=== PATIENT | female | born 1990 | race Caucasian/White ===

== ENCOUNTER 2019-11-03 14:00 | Outpatient (CLI) | payer MEDICAID, SELFPAY ==
--- NOTE | 2019-11-03 | US_ITS ---
WS: [id number] THYROID ULTRASOUND HISTORY: THYROMEGALY COMPARISON: 09/10/2011. 01/29/2018 Right lobe: 5.1 cm x 1.3 cm x 1.5 cm. Volume: 5.2 cm3. Normal size and echotexture. No significant are dominant nodules are present. Left lobe: 5.1 cm x 1.6 cm x 1.6 cm. Volume: 6.6 cm3. Normal size gland. Hypoechoic nodule measuring 2.8 mm in the LEFT thyroid. Probably representing fer oid cyst. Isthmus: 0.2 cm. US/US thyroid 92224 IMPRESSION: Negative thyroid ultrasound. No concerning or suspicious masses.
== END 2019-11-03 14:01 | disposition home or self-care (01) ==
LOC: RADOUTREAD 15:57
PROVIDERS: Family Provider Family Medicine; Visit Provider Family Medicine
DX: Z76.89 Persons encountering health services in other specified circumstances (principal)

== ENCOUNTER 2019-12-06 12:20 | Outpatient (CLI) | payer MEDICAID, SELFPAY ==
--- NOTE | 2019-12-06 | US_ITS ---
WS: [id number] OB ultrasound, 12/08/2019 Clinical Data: MULTIGRAVIDA IN 2ND TRIMESTER Comparison: None. Findings: There is a single intrauterine in the breech presentation. The placenta is Anterior and gra de 0. There is a normal amount of amnionic fluid. The heart rate is 153 beats per minute. The c ervix is 4.13 cm and closed. Measurements of growth and development: BPD: 4.7 cm HC: 17.6 cm AC: 15.4 cm FL: 3.3 cm The estimated weight is 352 or approximately 12 ounces The estimated gestational age is 20w2d with an JOSÉ LUIS of approximately 04/22/2020. anatomy show a normal stomach, kidneys, bladder, cord insertion, three-vessel cord, entire spin e, four-chamber heart, lateral cerebral ventricles, cerebellum and cisterna magna. US/US OB >= 14 weeks fetus [id number] Impression: 1. Single intrauterine in breech presentation. 2. Estimated gestational age 20w2d with an JOSÉ LUIS of 04/22/2020. 3. heart rate 153 beats per minute.
== END 2019-12-06 12:21 | disposition home or self-care (01) ==
LOC: RADOUTREAD 12-08 14:36
PROVIDERS: Family Provider Family Medicine; Visit Provider Family Medicine
DX: Z76.89 Persons encountering health services in other specified circumstances (principal)

== ENCOUNTER 2020-04-19 20:51 | Inpatient (IN) | payer MEDICAID, SELFPAY ==
[2020-04-19 20:30] VITALS: BP 134/64; PULSE 81; RESP 16; TEMP 36.8
[2020-04-19 20:50] VITALS: BMI 28.3
[2020-04-19 22:02] LABS: Basophils % 0.3 %; Eosinophils # 0.1 10^3/uL (0.0-0.8); Eosinophils % 0.5 %; Hematocrit 32.4 % (37.0-47.0); Hemoglobin 9.8 g/dL (11.5-15.3); Lymphocytes # 2.1 10^3/uL (0.8-4.8); Lymphocytes % 20.5 %; Mean Corpuscular HGB Conc 30.2 g/dL (30.0-36.0); Mean Corpuscular Hemoglobin 25.1 pg (28.0-34.0); Mean Corpuscular Volume 82.9 fL (81-99); Mean Platelet Volume 9.7 fL (7.4-10.4); Monocytes # 0.7 10^3/uL (0.2-0.9); Monocytes % 7.1 %; Neutrophils # 7.11 10^3/uL (1.8-7.7); Neutrophils % 70.9 %; Nucleated Red Blood Cells % 0.2 %; Platelet Count 323 10^3/cmm (130-400); Red Blood Count 3.91 10^6/uL (4.1-5.3); Red Cell Distribution Width 14.3 % (12.1-15.1)
[2020-04-19 23:18] VITALS: BP 149/55; PULSE 81
--- NOTE | 2020-04-19 23:27 | PM.DELIVERY ---
Delivery Note: Date of delivery: April 19, 2020 Pre-Delivery Course: The patient is a otherwise healthy 29-year-old 4 para 3-0-0-3 female at 39 weeks estimated gestational age who presented to the hospital in active labor. She had spontaneous rupture of membranes at around 12:00 today. She then began having contractions and came into the hospital for further evaluation. was otherwise unremarkable. She was GBS negative. Her glucose screen was negative. She is Rh+. There were no other abnormalities noted in her labs. The patient was very clear that she wanted to minimize any interventions during her . She is willing to have a Hep-Lock but did not want IV fluids. She also does not want to have Pitocin after delivery. I discussed these things with her in the office and talked her about the risks associated with not doing those things, and she wishes to proceed without the standard care regardless. Delivery: DELIVERY: The patient progressed to complete without difficulty. She delivered a male with a weight of 9 pounds 5 ounces with Apgars of 8, 9. The baby was delivered from the MATTHEW position. The mother was on her hands and knees when she delivered the baby. The baby was placed on the bed and typically turn the mother around and put the baby on the mother's chest. The mother wished just to delay the clamping of the umbilical cord until after the baby had been born for 10 minutes. There was no nuchal cord. There was no meconium. The placenta and 3 vessel cord were delivered intact shortly thereafter. The perineum and vaginal vault were carefully examined. She was noted to have a second-degree posterior midline tear that was repaired with 3-0 Vicryl after anesthetizing the area with lidocaine 2%. Both the mother and the baby were in stable condition. Post-Delivery Status: Good. The mother did begin to have some bleeding and some clots passed about 20 minutes after delivery of the . I talked her about the importance of preemptively addressing her bleeding, especially because her hemoglobin was marginal. She agreed to receive a liter of IV fluids and a half of the usual dose Pitocin we give after delivery of the baby. A&P Assessment and plan (1) 39 weeks gestation of : We will watch her for bleeding closely. Hopefully she has finished any major bleeding and will just have regular bleeding moving forward. Hopefully she will be ready be discharged in 24 hours. Status: Acute (2) Spontaneous vaginal delivery: Status: Acute Coding Level of Care Code Acute [place] Studies Professor for Chg Fwd Diagnoses 39 weeks gestation of [id number].39 Spontaneous vaginal delivery O80
[2020-04-19 23:28] VITALS: BP 0/0
[2020-04-19 23:29] VITALS: BP 134/60; PULSE 78
[2020-04-19 23:34] VITALS: BP 118/63; PULSE 80
[2020-04-19] MEDS: lactated ringers 1,000 ML 999 ML IV (23:35)
[2020-04-19 23:48] VITALS: BP 133/69; PULSE 79
[2020-04-20] VITALS (15 sets, daily range): BP systolic 107–125; BP diastolic 57–84; PULSE 59–94; RESP 15–18; TEMP 36.5–36.9; O2SAT 97–99
[2020-04-20] MEDS: oxytocin 30 UNIT/500 ML BAG 600 UNIT IV (01:54)
--- NOTE | 2020-04-20 07:27 | P.PN_ITS ---
GLASS MELT OPERATOR Subjective Subjective: Interval history: Patient is doing well with no problems. She has had some mild lochia with no significant cramps. She is ambulating well in the thus far is tolerating a regular diet this morning. Labor: Station: +2 Amniotic Membrane Status: Ruptured Monitor Mode: Palpation Contraction Pattern: Regular Vitals/I&O/Wt Last Vital Signs Temp 97.7 F 04/20/20 02:00 Pulse 73 04/20/20 03:00 Resp 16 04/20/20 03:00 BP 123/84 04/20/20 03:00 Pulse Ox 97 04/20/20 00:45 04/19/20 04/20/20 04/20/20 22:59 06:59 14:59 Intake Total 1299.0 / 1299.0 Output Total 2200 / 2200 Balance -901.0 / -901.0 Weight last 48 hrs Weight 77.111 kg Weight 77.111 kg Physical Exam Const: COMMON NORMALS: no acute distress, average body habitus and alert GENERAL APPEARANCE: cooperative Resp: COMMON NORMALS: normal respiratory effort, No retractions, No use of accessory muscles and clear to auscultation bilaterally AUSCULTATION: clear to auscultation bilaterally Cardio: COMMON NORMALS: regular rate, regular rhythm and No murmurs present (Cardio) RATE: regular rate RHYTHM: regular rhythm GI: COMMON NORMALS: Normal to inspection, nondistended, normoactive bowel sounds present, Soft to palpation (Fundus is firm.) and non-tender PALPATION: Yes Soft to palpation (Fundus is firm.) Extremity: COMMON NORMALS: normal to inspection, full ROM and no pedal edema Neuro: SENSORIUM/ORIENTATION: Yes alert Psych: COMMON NORMALS: mental status grossly normal, Normal thought process present, cooperative and normal affect THOUGHT PROCESS: Normal thought process present Data : 04/19/20 21:45 A&P Assessment and plan (1) Spontaneous vaginal delivery: Patient is doing well at this time. We will see how she does throughout the day and can possibly discharge home this evening. Plan probable discharge in the morning. Status: Acute Attestations Medical Necessity Statement*: Patient delivered late last night by spontaneous vaginal delivery. Plan probable discharge in the morning. There is a possibility she will be stable be discharged late tonight if she desires to go home tonight after 24 hours. Time Spent in Patient Care: less than 15 minutes Coding Level of Care Code Acute Adult Family Home Program Manager for Chg Fwd Diagnoses Spontaneous vaginal delivery O80
[2020-04-20] MEDS: lanolin oint 7 gm 1 APPLIC TOPICAL (09:21)
[2020-04-20] MEDS: prenatal vitamin Capsule 1 CAP PO (09:22)
[2020-04-20] MEDS: docusate sodium 100 mg Capsule PO ×2 (09:22→17:46)
[2020-04-20 13:05] LABS: Hematocrit 30.1 % (37.0-47.0); Hemoglobin 9.3 g/dL (11.5-15.3); Mean Corpuscular HGB Conc 30.9 g/dL (30.0-36.0); Mean Corpuscular Hemoglobin 25.3 pg (28.0-34.0); Mean Platelet Volume 9.7 fL (7.4-10.4); Platelet Count 346 10^3/cmm (130-400); Red Blood Count 3.67 10^6/uL (4.1-5.3); Red Cell Distribution Width 14.3 % (12.1-15.1); White Blood Count 13.1 10^3/uL (4.0-10.0)
[2020-04-20] MEDS: simethicone 80 mg Chew 120 MG PO (16:55)
--- NOTE | 2020-05-01 07:15 | PM.OBGYDC ---
Discharge Providers CONTROL SYSTEMS DEVELOPER Date of Admission: 04/19/20 20:51 Date of Discharge: 05/01/20 Attending Provider at Admission: Steve Jarrett MD Attending Provider at Discharge: Steve Jarrett MD Diagnoses at Discharge Discharge Diagnosis (1) Spontaneous vaginal delivery: Status: Acute Problem details: Patient did very well post delivery. She was ambulating well and tolerating regular diet. The was breast-feeding well and she desired to go home late the evening after delivery. Reason for Visit Reason for Visit: Contractions and possible ROM Hospital Course Hospital Course: As described above, the patient is done extremely well. She is very stable for discharge. She has had mild lochia and no significant bleeding. Information Peripartum Data: Infant Delivery Method: Vaginal Physical Exam Const: COMMON NORMALS: no acute distress and no limitations GENERAL APPEARANCE: cooperative and comfortable Resp: COMMON NORMALS: normal respiratory effort, No retractions, No use of accessory muscles and clear to auscultation bilaterally AUSCULTATION: clear to auscultation bilaterally Cardio: COMMON NORMALS: regular rate, regular rhythm and No murmurs present (Cardio) RATE: regular rate RHYTHM: regular rhythm GI: COMMON NORMALS: Normal to inspection, nondistended, normoactive bowel sounds present, Soft to palpation and non-tender PALPATION: Yes Soft to palpation Extremity: COMMON NORMALS: full ROM and no pedal edema Neuro: COMMON NORMALS: CN's II-XII intact bilaterally, no focal motor deficits and no sensory deficits noted Psych: COMMON NORMALS: mental status grossly normal and Normal thought process present THOUGHT PROCESS: Normal thought process present Discharge Data Vitals: Last Vital Signs Temp 98.3 F 04/20/20 23:20 Pulse 94 04/20/20 23:20 Resp 18 04/20/20 23:20 BP 115/75 04/20/20 23:20 Pulse Ox 98 04/20/20 16:15 Discharge Plan Discharge Patient Disposition: Home Condition: Stable Prescriptions: New ibuprofen 800 mg Tablet 800 mg PO TID Qty: 90 RF: 1 simethicone 80 mg Tablet,Chewable 120 mg PO Q6H PRN (Reason: Flatulence) Qty: 60 RF: 1 Discharge Orders: Discharge Order (Routine); Ordered 04/20/20 Ordered By: Gene Paris Referrals: Steve Jarrett MD [Physician] - 06/04/20 10:45 am (6 weeks and as needed/ ) Discharge Diet: Usual diet Discharge Activity: Resume usual activity Patient Instructions: Ibuprofen (By mouth), Vitamins (By mouth), Simethicone (By mouth), OB Discharge Report, OB Food/Drug Interaction Guide, OB Proud Parent Packet, OB Vaginal Deliveries Discharge Date/Time: 04/20/20 23:40 Discharge Attestations CONTROL SYSTEMS DEVELOPER Time Spent in Discharge Care*: less than 30 min Specific Discharge Activities: Specific discharge activities: educating patient, documenting/other paperwork and evaluating patient/reviewing data Coding Level of Care Code Acute Assembly Technician for Chg Fwd Exam Detailed Diagnoses Spontaneous vaginal delivery O80
== END 2020-04-20 23:40 | disposition home or self-care (01) | DRG 807 ==
LOC: OBGYN 04-20 08:37 → OPOB 04-20 08:37
PROVIDERS: Admitting Provider Family Medicine; Family Provider Family Medicine; Visit Provider Family Medicine
DX: O42.02 Full-term premature rupture of membranes, onset of labor within 24 hours of rupture (principal); Z37.0 Single live birth; Z3A.39 39 weeks gestation of pregnancy; O70.1 Second degree perineal laceration during delivery
CPT/HCPCS: 12345; 36415; 59025; 59409; 83986; 85025; 85027; 98960; 99211